=== PATIENT | female | born 1985 | race Caucasian/White ===

== ENCOUNTER 2016-07-09 11:28 | Emergency (ER) | payer OTHER ==
[2016-07-09 13:10] LABS: ABSOLUTE NEUTROPHIL COUNT 5.8 K/mm3 (1.8-7.7); BASO % 0.1 % (0.2-1.0); EOS % 0.5 % (0.9-2.9); HEMATOCRIT 40.5 % (37.0-47.0); HEMOGLOBIN 14.1 gm/l (12.0-16.0); IMM NEUT% 0.3 % (0-1); LYMPH # 1.8 (1.0-4.8); LYMPH % 21.3 % (15-45); MEAN CELL VOLUME 87.7 fl (81.0-99.0); MEAN CORPUSCULAR HEMOGLOBIN 30.5 pg (27.0-31.0); MEAN CORPUSCULAR HGB CONC 34.8 g/dl (33.0-37.0); MEAN PLATELET VOLUME 10.6 fl (7.4-10.4); MONO # 0.9 (0.0-0.8); MONO % 9.9 % (4-12); NEUT % 67.9 % (43-75); PLATELET COUNT 173 K/mm3 (130-400); RED CELL DISTRIBUTION WIDTH 11.6 % (11.5-14.5)
[2016-07-09 13:20] LABS: ALB/GLOB RATIO 1.2 (>1.0); ALBUMIN 3.8 gm/dL (3.5-5.7); CALCIUM 8.7 mg/dL (8.6-10.3)
[2016-07-09 13:24] LABS: SPECIFIC GRAVITY 1.025 (1.001-1.030); URINE BILIRUBIN NEGATIVE (NEGATIVE); URINE BLOOD 2+ (NEGATIVE); URINE GLUCOSE (UA) NEGATIVE (NEGATIVE); URINE LEUKOCYTE ESTERASE TRACE (NEGATIVE); URINE NITRITE NEGATIVE (NEGATIVE); URINE PROTEIN NEGATIVE (NEGATIVE); URINE UROBILINOGEN NORMAL (0-1 mg/dl)
[2016-07-09 13:26] LABS: HCG,QUALITATIVE URINE POSITIVE
[2016-07-09 13:27] LABS: URINE APPEARANCE SL CLOUDY; URINE COLOR AMBER
[2016-07-09 13:39] LABS: URINE BACTERIA 2+
[2016-07-09] MEDS ORDERED: ONDANSETRON 4 MG/2ML 2 ML VIAL ONE (13:44)
[2016-07-09] MEDS ORDERED: SODIUM CHLORIDE 0.9% 1,000 ML ONE (13:44)
[2016-07-09] MEDS ORDERED: FAMOTIDINE 10 MG/ML 2ML VIAL ONE (13:45)
== END 2016-07-09 14:47 | disposition home or self-care (01) ==
LOC: ED 11:28
DX: Z33.1 Pregnant state, incidental (principal); R11.2 Nausea with vomiting, unspecified; F17.210 Nicotine dependence, cigarettes, uncomplicated
CPT/HCPCS: 83690; 81025; 85025; 80053; 81001; 96375; 99283 ×2; 96374; 96361; J2405; J7030